=== PATIENT | female | born 2000 | race Hispanic/Latino ===

== ENCOUNTER → 2024-11-26 14:41 | Outpatient (CLI) | payer OTHER, SELFPAY ==
[2024-11-26 15:15] LABS: Add Manual Diff / Slide Review NO; Basophils Absolute Auto 100 /uL (0-100); Basophils Percent Auto 0.7 % (0-2); Eosinophils Absolute Auto 100 /uL (0-450); Eosinophils Percent Auto 0.7 % (2-4); Hematocrit 39.1 % (36-46); Hemoglobin 13.2 g/dL (12.0-16.0); Lymphocytes Absolute Auto 2300 /uL (1100-4500); Lymphocytes Percent Auto 22.5 % (25-40); Mean Corpuscular HGB Conc 33.6 % (30-36); Mean Corpuscular Hemoglobin 28.6 PG (26-34); Mean Corpuscular Volume 85.2 fL (80-100); Monocytes Absolute Auto 400 /uL (0-900); Monocytes Percent Auto 3.8 % (3-14); Neutrophils Absolute Auto 7500 /uL (1500-7000); Neutrophils Percent Auto 72.3 % (50-75); Platelet Count 163 X10^3/uL (150-400); Red Cell Distribution Width 14.3 % (11.6-14.8); White Blood Cell Count 10.4 X10^3/uL (4.5-11.0)
[2024-11-26 15:27] LABS: Hemoglobin A1C% w Est Avg Glu 4.8 % (4.0-6.0)
[2024-11-26 15:47] LABS: Natera Collection Specimen Collected
[2024-11-26 16:13] LABS: Hepatitis B Surface Antigen NEGATIVE s/c (NEGATIVE); Rubella Antibody IgG 2.2 IU/mL (>15)
[2024-11-26 16:23] LABS: HIV 1 & 2 Ab/Ag 4th Gen Combo NEGATIVE (NEGATIVE); Hep C Virus Ab w/Reflex Quant NEGATIVE s/c (NEGATIVE)
[2024-11-26 17:44] LABS: Appearance Urine UA CLEAR; Bilirubin Urine UA NEGATIVE (NEGATIVE); Color Urine UA YELLOW; Glucose Urine UA NEGATIVE (Negative); Ketones Urine UA NEGATIVE (NEGATIVE); Leukocyte Esterase Urine UA NEGATIVE (NEGATIVE); Nitrite Urine UA NEGATIVE (Negative); Occult Blood Urine UA 1+ (Negative); Protein Urine UA TRACE (Negative); Specific Gravity Urine UA 1.025 (1.000-1.035); Urobilinogen Urine UA 0.2 E.U./dL (0.2)
[2024-11-26 17:45] LABS: pH Urine UA 5.5 (4.5-8.0)
[2024-11-26 18:21] LABS: Bacteria Urine Moderate (10-30); RBC Urine 1-5/HPF (0-5/HPF); Squamous Epithelial Cell Urine 10-30 /HPF (0-5/HPF); Urine Volume 10mL (spun); WBC Urine 1-5/HPF (0-5/HPF)
== END ==
LOC: LAB 14:42
PROVIDERS: PCP Family Medicine; Referring Provider Family Medicine; Visit Provider Family Medicine
DX: O09.899 Supervision of other high risk pregnancies, unspecified trimester (principal); O99.210 Obesity complicating pregnancy, unspecified trimester; O09.299 Supervision of pregnancy with other poor reproductive or obstetric history, unspecified trimester; Z86.32 Personal history of gestational diabetes; A60.00 Herpesviral infection of urogenital system, unspecified
CPT/HCPCS: 36415; 80055; 81003; 81015; 83036; 86787; 86803; 86850; 86900; 86901; 87086; 87389; 87529

== ENCOUNTER → 2025-02-20 12:45 | Outpatient (CLI) | payer OTHER, SELFPAY ==
--- NOTE | 2025-02-20 12:46 | DI.US.S_ITS ---
PROCEDURE: US OB FOLLOW UP INDICATIONS: f/u US to complete anatomy evaluation, including The calculations are made using the working ELIZABETH of 06/03/2025. TECHNIQUE: Real-time scanning was performed of the fetus, with image documentation and biometric measurements. Endovaginal scanning: No COMPARISON: None. FINDINGS: General: A single living intrauterine gestation is present. Presentation: Vertex. Placenta: Placental position is posterior , without previa. Amniotic fluid index: 19.6 cm, normal range is 5-24 cm. Single deepest vertical pocket is 7.0 cm. heart rate: 152 beats per minute. Maternal cervical canal: 4.1 cm long. Normal lower limit is 2.5 cm. Clinically estimated gestational age: 25 week 2 day Face: Nose and lips, facial profile are normal. Heart: 4-chambered heart is present, with normal ventricular outflow tracts. Extremities: All 4 extremities are visualized and normal. IMPRESSION: Single live intrauterine consistent with 25 week 2 day gestation Facial profile, cardiac views and feet are all within normal limits, completing a normal anatomic survey Approved by: Benji Bustos M.D. on 02/20/2025 at 18:23
== END ==
LOC: US 12:46
PROVIDERS: PCP Family Medicine; Referring Provider Family Medicine; Visit Provider Family Medicine
DX: Z36.2 Encounter for other antenatal screening follow-up (principal); Z3A.25 25 weeks gestation of pregnancy
CPT/HCPCS: 76816

== ENCOUNTER → 2025-03-06 09:13 | Outpatient (CLI) | payer OTHER, SELFPAY ==
[2025-03-06 11:12] LABS: Protein (Total) Urine Random 19 mg/dL (0-12); Protein Creatinine Ratio Urine 0.48 GRAM/24H
[2025-03-06 11:29] LABS: Hematocrit 34.5 % (36-46); Hemoglobin 11.3 g/dL (12.0-16.0)
[2025-03-06 12:02] LABS: Urine N gonorrhoeae NOT DETECTED
[2025-03-06 12:03] LABS: Urine Chlamydia NOT DETECTED
[2025-03-06 12:22] LABS: GTT (PREG) 1 Hour PP 50gm Dose 136 mg/dL (76-139)
== END ==
PROVIDERS: PCP Family Medicine; Referring Provider Family Medicine; Visit Provider Family Medicine
DX: O09.899 Supervision of other high risk pregnancies, unspecified trimester (principal); O09.299 Supervision of pregnancy with other poor reproductive or obstetric history, unspecified trimester; Z86.32 Personal history of gestational diabetes; O99.210 Obesity complicating pregnancy, unspecified trimester; Z3A.26 26 weeks gestation of pregnancy
CPT/HCPCS: 36415; 82570; 82950; 84156; 85014; 85018; 87491; 87591

== ENCOUNTER → 2025-03-25 15:01 | Outpatient (CLI) | payer OTHER, SELFPAY ==
[2025-03-25 16:13] LABS: Protein (Total) Urine Random 24 mg/dL (0-12); Total Volume Urine 900 mL
== END ==
PROVIDERS: PCP Family Medicine; Referring Provider Family Medicine; Visit Provider Family Medicine
DX: O09.899 Supervision of other high risk pregnancies, unspecified trimester (principal); E66.01 Morbid (severe) obesity due to excess calories; O99.211 Obesity complicating pregnancy, first trimester
CPT/HCPCS: 84156